=== PATIENT | male | born 1990 ===

== ENCOUNTER 2018-10-16 09:04 | Emergency (ER) | payer OTHER ==
--- OUTSIDE RECORDS SUMMARY | 2018-10-16 10:02 | XMS REPORT | Continuity of Care Document ---
:1990 External Reference #:[id number] Author Name Brayan Bardales PA Address [address] [address] Care Team Providers Name Role Phone Brayan Bardales PA Care Team Information Casserole Preparer Unavailable Payers Date Identification Numbers Payment Provider Subscriber Policy Number: [id number] Lifetime Benefit Vinicio Lowry Group Number: [id number] PayID: EBS MORENITA Macias [id number] Policy Number: [id number] [facility] Gerson Lowry Group Name: No Charge/Courtesy [address] PayID: [id number] [place] [address] Advance Directives Description No Information Available Problems Date Description Provider Status Onset: 04/30/2012 Attention deficit hyperactivity Mary Culver RN MS Active disorder MICROPHONE OPERATOR Onset: 07/11/2017 Mild recurrent major depression Brayan Bardales PA Active Onset: 07/11/2017 Generalized anxiety disorder Brayan Bardales PA Active Onset: 07/11/2017 Gastroesophageal reflux disease Brayan Bardales PA Active Family History Date Family Member(s) Observation Comments Father Depression Father Add Mother Healthy-no Family History Of Illnesses Social History Type Date Description Comments Sex Unknown Tobacco Use Start: Unknown Never Smoked Cigarettes Tobacco Use Start: Unknown Patient has never smoked Smoking Status Reviewed: 10/08/18 Patient has never smoked Allergies, Adverse Reactions, Alerts Description No Known Drug Allergies Medications Medication Date Status Form Strength Qnty SIG Indications Ordering Provider Nystatin/Triamc 08/13/ Active Ointment 423877-4.1 60gm apply to N39.0 ana laura Lam 2018 Unit/GM-% gluteal Jazmine Acetonide area bid MD Jason until rash gone for 3days Vitamin D3 08/06/ Active Tablets 2000Unit 90tabs 1 by mouth E55.9 Genaro, Super Strength 2018 every day Jazmine Gomez MD Levothyroxine 08/06/ Active Tablets 50mcg 90tabs 1 by mouth E03.9 Genaro, Sodium 2018 every day Jazmine Gomez MD Viibryd 11/12/ Active Tablets 40mg 90tabs take one F60.5 Genaro, 2017 tablet by Jazmineher jl Gomez MD every day in the morning Clobetasol 10/31/ Active Shampoo 0.05% 354ml apply thin Macapatrick, Propionate 2017 film to [facility] scalp. MD Jason leave in place for 15 min before lathering and rinsing every day Omeprazole 02/02/ Active Capsules 20mg 30caps Take One K21.[address] Capsule By Jazmineher Jl Gomez MD Every Day K21.9 Doxycycline 08/03 Hx Capsules 100mg 14ca 1 cap by mouth N39. Genaro, Monohydrate 09/22 ps twice a day 0 Jazmine Gomez MD 08/03 04/22 18 Fluconazole 08/03 Hx Tablets 200mg 2tab 1 by mouth x1 N39. Genaro, 09/22 s before and after 0 Jazmine - Doxy course MD Jason 08/03 04/22 18 Adacel 07/05 Hx Suspension 5-2-15.5LF .500 intramuscular x Palomo 05/23 -mcg/0.5 ml one tdap Mary Castellanos 18 - injection. RN MS MICROPHONE OPERATOR 12/21 18 Vitamin D-400 07/05 Hx Tablets 400Unit 4 per day Palomo 04/22 Mary Castellanos 18 - RN MS MICROPHONE OPERATOR 12/21 18 Bupropion HCL ER Hx Tablets ER 150mg 90ta take one tablet F33. Genaro, (XL) 01/20 24HR bs by mouth every 0 Jazmine 18 - fadumo Gomez MD 07/05 04/22 18 Doxycycline Hyclate 11/[address] 100mg 20ta 1 by mouth twice R35Julian Lam, 03/22 bs a day 0 Jazmine Gomez MD 02/20 18 Trintellix 10/05 Hx Tablets 20mg 30ta 1 by mouth every F33. Genaro 04/22 bs day 0 Jazmine Gomez MD 11/01 10/23 18 Venlafaxine HCL ER 11/0 Hx Caps ER 24HR 150mg 60ca take 2 capsules F33. Genaro, 04/22 ps once daily 0 Jazmine 17 - MD Jason 10/05 04/22 18 Venlafaxine HCL 10/0 Hx Tablets 37.5mg 45ta 1 capsule daily F33. Genaro, 11/20 bs for 1week and 0 Jazmine 17 - then increase to MD Jason 10/0 2tabs daily 11/20 17 Venlafaxine HCL ER 10/0 Hx Caps ER 24HR 37.5mg 45ca 1 by mouth every F33. Genaro 11/20 ps day for 1 week 0 Jazmine 17 - and then increase MD Jason 110 to 2 tabs daily 04/22 17 Lexapro 05/04 Hx Tablets 10mg 30ta 1/2 tab for 1week F33. Genaro, 10/23 bs then increase to 0 Jazmine 17 - 1 by mouth every MD Jason 10/0 day 11/20 17 Truvada 04/04 Hx Tablets 200-300mg 30ta 1 po qd for Genaro, 04/22 bs pre-exposure Jazmine 17 - prophylaxis-jacques MD Jason 10/0 check 11/20 17 Sertraline HCL 04/03 Hx Tablets 50mg 45ta /2 tab by mouth F33. Genaro, 01/20 bs every evening for 0 Jazmine 17 - 1week, then MD Jason 05/04 increase to 1 2/20 every evening for 17 2weeks, and then to 2 every evening Doxycycline Hyclate Hx Tablets 100mg 14ta 1 by mouth twice A56. Genaro 02/20 bs a day x 7 d 2 Jazmine Gomez MD 02/02 02/20 17 Monistat 1-Day Hx Ointment 6.5% B37. Genaro, 02/20 49 Jazmine 17 - MD Jason 02/20 Monistat 7 Combo Hx Kit 100&2mg-% B37. Genaro, Pack Dean 02/20 (9GM) 49 Jazmine 17 - MD Jason 04/03 01/20 17 Fluconazole 0 Hx Tablets 150mg 1tab 1 by mouth x1 B37. Genaro, 02/20 s 49 Jazmine Gomez MD 04/03 01/20 17 Azithromycin 2 Hx Tablets 500mg 2tab 2 Tabs X One Palomo, 01/20 s Together. Mary Castellanos, 17 - RN MS MICROPHONE OPERATOR 02/20 17 Nexium OTC 09/[address] 20mg 30ca 1 by mouth every Palomo, 12/21 ps day Mary C, 16 - RN MS MICROPHONE OPERATOR 09/03 12/21 16 Nexium 09/[address] 20mg 90ca one tab daily by K21. Palomo, 12/21 ps mouth, may use 9 Mary Castellanos, 16 - generic RN MS MICROPHONE OPERATOR 09/22 16 Hydroxyzine HCL 05/04 Hx Tablets 10mg 30ta 1-3 tabs every 6 300. Palomo, 04/22 bs hours as needed 00 Mary Castellanos, 14 - anxiety or sleep RN MS MICROPHONE OPERATOR 09/03 12/21 16 Buspirone HCL 05/04 Hx Tablets 15mg 60ta 5 mg twice a day 300. Palomo, 04/22 bs may increase by 5 00 Mary Castellanos, 14 - mg up to A total RN MS MICROPHONE OPERATOR 09/03 of 15 mg bid. 12/21 16 Cyclobenzaprine HCL /0 Hx Tablets 10mg 30ta 1 qhs AT hs prn 307. Palomo, 05/23 bs muscle spasm. 42 Mary Castellanos, 14 - RN MS MICROPHONE OPERATOR 09/22 16 Citalopram /0 Hx Tablets 20mg 90ta Take 1/2 Tablet 300. Palomo, Hydrobromide 05/23 bs By Mouth Once 02 Mary Castellanos, 14 - Daily For 6 To 8 RN MS MICROPHONE OPERATOR 09/03 Days Then 1 Once 12/21 Daily 16 Ambien 11/01 Hx Tablets 5mg 30ta one at bedtime as 307. Palomo, 10/23 bs needed for sleep 42 Mary Castellanos, 13 - RN MS MICROPHONE OPERATOR 0 05/23 14 Hydroxyzine HCL /1 Hx Tablets 25mg 30ta one tab q 6-8 hrs 300. Palomo , 10/23 bs hrs prn, anxiety, 00 Mary Castlelanos, 13 - may take 2 at hs RN MS MICROPHONE OPERATOR 11/01 if needed for 10/23 sleep 13 Omeprazole 10/[address] 20mg 90ca Take One Capsule K21. Palomo, 10/23 ps By Mouth Every 0 Mary Castellanos, 13 - Day RN MS [facility] 09/03 12/21 16 Fexofenadine HCL 07/05 Hx Tablets 60mg 60ta 1 tab bid daily Palomo, 12/21 bs as needed for Mary Castellanos, 10 - allergies RN MS [facility] 04/04 04/22 12 Valium 06/04 Hx Tablets 5mg 2tab 09/04-1 po q 4-6 Palomo, 09/22 s hrs prn flight Mary Castellanos, 10 - anxiety RN MS [facility] 04/04 04/22 12 Concerta 05/05 Hx Tablets ER 18mg 30ta one tab daily in 314. Palomo, 10/23 bs am, 01 Mary Castellanos, 10 - RN [facility] 04/04 04/22 12 Allergy Meds prn 04/03 Hx Palomo, 05/23 Mary Castellanos, 10 - RN [facility] 04/03 05/23 10 Silvadene 04/03 Hx Cream 1% 1uni Apply qd To bid 692. Palomo, 05/23 ts For 5 Days 76 Mary Castellanos, 10 - RN [facility] 05/05 10/23 10 Tylenol/Codeine #3 04/03 Hx Tablets 300-30mg 20ta 1 po tid prn 692. Palomo, 05/23 bs 76 Mary Castellanos, 10 - RN [facility] 04/04 05/23 10 Cetirizine HCL 04/03 Hx Tablets 10mg 30ta daily Palomo, 05/23 bs Mary Castellanos, 10 - RN [facility] 07/05 12/21 10 No Work 04/22/2010 08 Hx D/T Injury may return next 692. Palomo, 05/23 scheduled day 76 Mary Castellanos, 10 - RN MS [facility] 04/04 05/23 10 Strattera 04/03 Hx Capsules 40mg 60ca 1 po qdx 1-2 314. Palomo, 05/23 ps weeks then 01 Mary Castellanos, 10 - increase to bid RN MS [facility] 05/05 10/23 10 Immunizations CPT Code Status Date Vaccine Lot # [id number] Refused 07/31/2018 Influenza Vac, Quadrivalent, Split, 0.5mL Dosage, Im Use Vital Signs Date Vital Result Comment 10/08/2018 9:29am Weight 349.00 lb Heart Rate 82 /min BP Systolic 127 mmHg BP Diastolic 82 mmHg Height 70 inches 5'10" BMI (Body Mass Index) 50.1 kg/m2 08/13/2018 11:34am Weight 341.00 lb Heart Rate 86 /min BP Systolic 135 mmHg BP Diastolic 86 mmHg Height 70 inches 5'10" BMI (Body Mass Index) 48.9 kg/m2 Urine Dipstick - Blood NEGATIVE Urine Dipstick - Protein NEGATIVE Urine Dipstick - Glucose NEGATIVE Urine Dipstick - Leukocytes NEGATIVE 08/05/2018 9:38am Weight 342.00 lb Heart Rate 78 /min BP Systolic 134 mmHg BP Diastolic 84 mmHg Height 70 inches 5'10" BMI (Body Mass Index) 49.1 kg/m2 07/31/2018 10:03am Weight 343.25 lb Heart Rate 82 /min BP Systolic 135 mmHg BP Diastolic 87 mmHg Height 70 inches 5'10" BMI (Body Mass Index) 49.2 kg/m2 05/02/2018 8:04am Weight 328.00 lb Heart Rate 89 /min BP Systolic 137 mmHg BP Diastolic 91 mmHg Height 70 inches 5'10" BMI (Body Mass Index) 47.1 kg/m2 03/07/2018 7:38am Weight 327.00 lb Heart Rate 78 /min BP Systolic 132 mmHg BP Diastolic 83 mmHg Height 70 inches 5'10" BMI (Body Mass Index) 46.9 kg/m2 11/27/2017 9:40am Weight 325.00 lb Heart Rate 82 /min BP Systolic 132 mmHg BP Diastolic 84 mmHg Height 70 inches 5'10" BMI (Body Mass Index) 46.6 kg/m2 Urine Dipstick - Blood NEGATIVE Urine Dipstick - Protein NEGATIVE Urine Dipstick - Glucose NEGATIVE Urine Dipstick - Leukocytes NEGATIVE 10/31/2017 10:34am Weight 320.12 lb Heart Rate 85 /min BP Systolic 131 mmHg BP Diastolic 86 mmHg Height 70 inches 5'10" BMI (Body Mass Index) 45.9 kg/m2 09/11/2017 9:07am Weight 316.00 lb Heart Rate 84 /min BP Systolic 139 mmHg BP Diastolic 85 mmHg Height 70 inches 5'10" BMI (Body Mass Index) 45.3 kg/m2 08/22/2017 10:10am Weight 310.00 lb Heart Rate 84 /min BP Systolic 132 mmHg BP Diastolic 72 mmHg Height 70 inches 5'10" BMI (Body Mass Index) 44.5 kg/m2 07/11/2017 9:44am Weight 309.38 lb Heart Rate 84 /min BP Systolic 139 mmHg BP Diastolic 87 mmHg Height 70 inches 5'10" BMI (Body Mass Index) 44.4 kg/m2 06/05/2017 10:29am Weight 303.38 lb Heart Rate 77 /min BP Systolic 145 mmHg BP Diastolic 87 mmHg Height 70 inches 5'10" BMI (Body Mass Index) 43.5 kg/m2 05/15/2017 8:56am Weight 305.25 lb Heart Rate 70 /min BP Systolic 134 mmHg BP Diastolic 88 mmHg Height 70 inches 5'10" BMI (Body Mass Index) 43.8 kg/m2 04/17/2017 9:35am Weight 299.12 lb Heart Rate 70 /min BP Systolic 129 mmHg BP Diastolic 82 mmHg Height 70 inches 5'10" BMI (Body Mass Index) 42.9 kg/m2 02/26/2017 11:22am Weight 305.00 lb Heart Rate 64 /min BP Systolic 120 mmHg BP Diastolic 80 mmHg Height 70 inches 5'10" BMI (Body Mass Index) 43.8 kg/m2 02/06/2017 11:04am Weight 305.00 lb Heart Rate 64 /min BP Systolic 120 mmHg BP Diastolic 74 mmHg Height 70 inches 5'10" BMI (Body Mass Index) 43.8 kg/m2 12/22/2016 8:10am Weight 306.38 lb Heart Rate 87 /min BP Systolic 131 mmHg BP Diastolic 75 mmHg Height 70 inches 5'10" BMI (Body Mass Index) 44.0 kg/m2 09/28/2016 11:24am Weight 310.25 lb Heart Rate 71 /min BP Systolic 131 mmHg BP Diastolic 84 mmHg Height 70 inches 5'10" BMI (Body Mass Index) 44.5 kg/m2 05/04/2016 2:38pm Weight 312.00 lb Heart Rate 92 /min BP Systolic 121 mmHg BP Diastolic 82 mmHg Height 70 inches 5'10" BMI (Body Mass Index) 44.8 kg/m2 09/16/2015 11:18am Weight 302.25 lb Heart Rate 75 /min BP Systolic 138 mmHg BP Diastolic 89 mmHg Height 70 inches 5'10" BMI (Body Mass Index) 43.4 kg/m2 05/21/2014 11:07am Weight 286.25 lb Heart Rate 73 /min BP Systolic 134 mmHg BP Diastolic 85 mmHg Height 70 inches 5'10" BMI (Body Mass Index) 41.1 kg/m2 12/31/2013 8:51am Weight 279.00 lb Heart Rate 82 /min BP Systolic 130 mmHg BP Diastolic 82 mmHg 12/10/2013 10:58am Weight 282.50 lb Heart Rate 77 /min BP Systolic 130 mmHg BP Diastolic 80 mmHg 11/12/2012 1:55pm Weight 254.00 lb Heart Rate 92 /min BP Systolic 135 mmHg BP Diastolic 82 mmHg 10/15/2012 9:49am Weight 247.38 lb Heart Rate 80 /min BP Systolic 133 mmHg BP Diastolic 84 mmHg 04/30/2012 10:19am Weight 220.00 lb Heart Rate 80 /min BP Systolic 132 mmHg BP Diastolic 85 mmHg Height 70 inches 5'10" BMI (Body Mass Index) 31.6 kg/m2 06/23/2010 2:27pm Weight 197.00 lb Heart Rate 76 /min BP Systolic 131 mmHg BP Diastolic 74 mmHg Height 70 inches 5'10" BMI (Body Mass Index) 28.3 kg/m2 Urine Dipstick - Blood NEGATIVE Urine Dipstick - Protein NEGATIVE Urine Dipstick - Glucose NEGATIVE 05/25/2010 2:25pm Weight 198.00 lb Heart Rate 93 /min BP Systolic 121 mmHg BP Diastolic 74 mmHg 04/21/2010 11:36am Weight 197.00 lb Heart Rate 71 /min BP Systolic 120 mmHg BP Diastolic 75 mmHg Results Test Date Facility Test Result H/L Range Note Laboratory test 08/22/2018 [facility] Growth <0.1 ng/mL 0.0-10.0 finding [address] [facility], [place] [address] Serum [phone] PDF [id number] SEE IMAGE FSH, Serum 08/22/2018 [facility] FSH 5.4 mIU/mL 1.5-12.4 [address] [place] [address] [phone] Laboratory test 08/22/2018 [facility] Luteinizing 9.3 mIU/mL High 1.7-8.6 finding [address] [facility](LH), [place] [address] [phone] TSH 2.390 uIU/mL 0.450-4.500 Acth, Plasma 51.7 pg/mL 7.2-63.3 1 Prolactin 10.9 ng/mL 4.0-15.2 Laboratory test 08/13/2018 [facility] Urine Culture Microbiology res 2 finding <SEE NOTE> GC/Chlamydia By 08/13/2018 [facility] Chlamydia by Dna NEGATIVE Negative Dna Probe Probe GC by Dna Probe NEGATIVE Negative Comprehensive Met Panel-FCMG 08/05/2018 [facility] Sodium 139 mmol/L 135- 146 3 Potassium 4.2 mmol/L 3.5-5.2 Chloride# 102 mmol/L 97-110 4 Carbon Dioxide 25 mmol/L 24-34 Glucose 69 mg/dL Low 70-105 BUN 13 mg/dL 6-26 Creatinine 1.1 mg/dL 0.5-1.4 Calcium 10.0 mg/dL 8.5-10.2 Total Protein 7.5 g/dL 6.0-8.0 Albumin 4.6 g/dL 3.6-4.9 Globulin 2.9 g/dL 2.0-3.5 A/G Ratio 1.6 Ratio 1.0-2.2 Total Bilirubin 0.6 mg/dL 0.1-1.3 Alkaline Phosphatase 62 U/L 24-140 Alt 40 U/L 3-42 Ast 25 U/L 8-42 Priscilla Egfr >60 >60 5 Non Priscilla Egfr >60 >60 6 Anion Gap 12 mmol/L 5-15 7 Laboratory test finding 08/05/2018 [facility] Magnesium 2.0 mg/dL 1.5-2.7 TSH 2.96 uIU/mL 0.35-4.94 Free T4 1.02 ng/dL 0.70-1.48 Lipid 08/05/2018 [facility] Cholesterol 256 mg/dL High 50-199 Triglycerides 337 mg/dL High 30-200 HDL 32 mg/dL 29-71 8 Chol/ HDL Ratio 8.1 ratio High 4.0-6.7 VLDL 67 mg/dL High 2-29 LDL (Calc) 157 mg/dL High 20-99 9 CBC with Auto Diff-fcmg 08/05/2018 [facility] WBC 8.7 K/uL 4.1-11.0 RBC 5.29 M/uL 4.60-6.10 Hemoglobin 15.5 gm/dL 13.5-18.0 Hematocrit 43.4 % 41.0-53.0 MCV 82.1 fL 80.0-97.0 MCH 29.2 pg 27.0-32.0 MCHC 35.6 g/dL 32.0-36.0 RDW 13.9 % 11.5-14.5 PLT Count 248 K/ul 140-400 MPV 8.7 FL 7.1-10.7 Neutrophil 53.6 % 35.0-75.0 Lymphocyte 34.4 % 16.0-52.0 Monocyte 6.7 % 2.0-10.0 Eosinophil 4.5 % 0.0-5.0 Basophil 0.8 % 0.0-4.0 Abs Neutrophils 4.6 K/uL 2.1-8.0 Abs Lymphocytes 3.0 K/uL 0.8-5.5 Abs Monocytes 0.6 K/uL 0.1-1.0 Abs Eosinophils 0.4 K/uL 0.0-0.5 Abs Basophils 0.1 K/uL 0.0-0.3 Laboratory test 08/05/2018 [facility] Vitamin D 25 Hydroxy 20 ng/mL Low 30- 100 10 finding Testosterone,Free & 08/05/2018 [facility] Testosterone Total 235 ng/dL Low 285-950 Total-Male Adult Male Sex Hormone Binding Globulin 16.4 nmol/L 13.3-89.5 Testosterone Free Adult Male 64 pg/mL 50-247 Testosterone Percent Free 2.7 % 1.8-3.2 Laboratory test 11/27/2017 [facility] Urine Culture Microbiology res 11 finding <SEE NOTE> GC/Chlamydia By 11/27/2017 [facility] Chlamydia by Dna NEGATIVE Negative Dna Probe Probe GC by Dna Probe NEGATIVE Negative GC/Chlamydia By Dna 02/06/2017 [facility] Chlamydia by Dna NEGATIVE Negative Probe Probe GC by Dna Probe NEGATIVE Negative GC/Chlamydia By Dna 12/22/2016 [facility] Chlamydia by Dna POSITIVE Abnormal Negative Probe Probe GC by Dna Probe NEGATIVE Negative Laboratory test finding 12/22/2016 [facility] Treponema Igg/Igm NEGATIVE ( Neg) 12 1 ACTH reference interval for samples collected between 7 and 10 AM. 2 Microbiology results SOURCE Clean Catch Midstream FINAL RESULT No growth 3 Updated reference range on new analyzer 4 Updated reference range on new analyzer 5 Concerning GFR Guidelines for Americans: Normal function or mild renal disease, if clinically at risk: >/=60 mL/min Moderately decreased: 30-59 Severely decreased: 15-29 Renal failure: <15 6 Concerning GFR Guidelines: Normal function or mild renal disease, if clinically at risk: >/=60 mL/min Moderately decreased: 30-59 Severely decreased: 15-29 Renal failure: <15 Glomerular Filtration Rate (GFR) is estimated based on the MDRD equation, which assumes a steady state for creatinine as recommended by the National Kidney Disease Education Program in conjunction with the National Institutes of Health and the National Kidney Foundation. Clinical conditions in which it may be necessary to measure GFR by using clearance methods include extremes of age and body size, severe malnutrition or obesity, diseases of skeletal muscle, paraplegia or quadriplegia, vegetarian diet, rapidly changing kidney function, and calculation of the dose of potentially toxic drugs that are excreted by the kidneys. 7 Updated Reference Range -2017 8 Per NCEP ATP III Guidelines: Results lower than 40 mg/dL are suggestive of increased risk for coronary artery disease. Results > or=to 60 mg/dL are considered a negative risk factor. 9 Per NCEP ATP III Guidelines: Normal Population <130 Patients with medical conditions: CHD/DM Optimal: <100 Borderline high: 130-159 High: 160-189 Very high: >189 10 Clinical Guidelines for recommended serum 25(OH)Vitamin D Deficient at less than 20 ng/mL Insufficient at 20 to <30 ng/mL Sufficient at 30-100 ng/mL Toxicity at greater than 100 ng/mL 11 Microbiology results SOURCE Clean Catch Midstream FINAL RESULT No growth 12 Unless otherwise specified, testing performed by [email or web address] [address] [place] [address] Procedures Date Code Description Status 02/26/2017 63821 Destruction Benign Lesions Other Than Skin Tags Up To 14 Completed Lesions Encounters Type Date Location Provider Dx Diagnosis Office Visit 08/13/2018 11:20a Brayan Valdivia PA N39.0 Urinary tract infection, site not specified B37.9 Candidiasis, unspecified Z68.42 Body mass index (BMI) 45.0-49.9, adult Office Visit 08/05/2018 9:40a Brayan Valdivia PA F41.1 Generalized anxiety disorder F33.0 Major depressive disorder, recurrent, 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.9 Gastro-esophageal reflux disease without esophagitis Z23 Encounter for immunization E66.01 Morbid (severe) obesity due to excess calories Z68.42 Body mass index (BMI) 45.0-49.9, adult E55.9 Vitamin D deficiency, unspecified Office Visit 07/31/2018 10:00a Mary Esparza Z02.89 Encounter for other PERLA Castellanos MS MICROPHONE OPERATOR administrative examinations F33.0 Major depressive disorder, recurrent, mild F41.1 Generalized anxiety disorder Z68.42 Body mass index (BMI) 45.0-49.9, adult Office Visit 05/02/2018 8:00a Brayan Valdivia PA F41.1 Generalized anxiety disorder F33.0 Major depressive disorder, recurrent, 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 L21.0 Seborrhea capitis Z68.42 Body mass index (BMI) 45.0-49.9, adult Office Visit 03/07/2018 7:40a Brayan Valdivia F60.5 Obsessive- compulsive PA personality disorder F33.0 Major depressive disorder, recurrent, mild F41.1 Generalized anxiety disorder K21.9 Gastro-esophageal reflux disease without esophagitis E66.01 Morbid (severe) obesity due to excess calories L21.0 Seborrhea capitis Z68.42 Body mass index (BMI) 45.0-49.9, adult Office Visit 11/27/2017 9:40a Brayan Valdivia PA R35.0 Frequency of micturition Z11.3 Encntr screen for infections w sexl mode of transmiss Office Visit 10/31/2017 10:00a Brayan Valdivia F60.5 Obsessive- compulsive PA personality disorder F33.0 Major depressive disorder, recurrent, mild F41.1 Generalized anxiety disorder K21.9 Gastro-esophageal reflux disease without esophagitis E66.01 Morbid (severe) obesity due to excess calories L21.0 Seborrhea capitis Office Visit 09/11/2017 9:40a Brayan Valdivia PA F41.1 Generalized anxiety disorder F33.0 Major depressive disorder, recurrent, 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.9 Gastro-esophageal reflux disease without esophagitis E66.01 Morbid (severe) obesity due to excess calories Office Visit 08/22/2017 10:00a Jazmine Adam Z01.89 Encounter for other MD Jason specified special examinations Office Visit 07/11/2017 9:40a Brayan Valdivia PA F33.0 Major depressive disorder, recurrent, mild F41.1 Generalized anxiety disorder K21.9 Gastro-esophageal reflux disease without esophagitis Office Visit 06/05/2017 10:40a Brayan Valdivia PA F33.0 Major depressive disorder, recurrent, mild F41.1 Generalized anxiety disorder K21.9 Gastro-esophageal reflux disease without esophagitis Office Visit 05/15/2017 9:40a Brayan Valdivia PA F33.0 Major depressive disorder, recurrent, mild F41.1 Generalized anxiety disorder Office Visit 04/17/2017 9:40a Brayan Valdivia PA F33.0 Major depressive disorder, recurrent, mild F41.1 Generalized anxiety disorder Office Visit 02/26/2017 10:45a Ambrocio Adamher B07.0 Plantar wart MD Jason Office Visit 02/06/2017 10:45a Jazmine Adam A56.2 Chlamydial infection of MD Jason genitourinary tract, unspecified Z11.3 Encntr screen for infections w sexl mode of transmiss E66.01 Morbid (severe) obesity due to excess calories K21.0 Gastro-esophageal reflux disease with esophagitis B37.49 Other urogenital candidiasis Office Visit 12/22/2016 8:20a Mary Esparza, K62.5 Hemorrhage of anus and RN MS MICROPHONE OPERATOR rectum L29.0 Pruritus ani B07.0 Plantar wart Z11.3 Encntr screen for infections w sexl mode of transmiss Z12.11 Encounter for screening for malignant neoplasm of colon Office Visit 09/28/2016 11:00a Mary Esparza, Z01.89 Encounter for other RN MS MICROPHONE OPERATOR specified special examinations K21.0 Gastro-esophageal reflux disease with esophagitis Office Visit 05/04/2016 2:20p Mary Esparza, Z11.59 Encounter for RN MS MICROPHONE OPERATOR screening for other viral diseases Office Visit 09/16/2015 11:20a Mary Esparza, K21.9 Gastro- esophageal RN MS MICROPHONE OPERATOR reflux disease without esophagitis R03.0 Elevated blood-pressure reading, w/o diagnosis of htn Office Visit 09/16/2015 10:40a Mary Esparza, Z00.00 Encntr for general RN MS MICROPHONE OPERATOR adult medical exam w/o abnormal findings E66.01 Morbid (severe) obesity due to excess calories K21.0 Gastro-esophageal reflux disease with esophagitis Office Visit 05/21/2014 10:40a Mary Esparza, 300.00 Anxiety State Unspec RN MS [employer]HONE OPERATOR Office Visit 12/31/2013 8:40a Mary Esparza, 300.02 Anxiety Disorder RN MS [employer]OPHONE OPERATOR Generalized 530.11 Esophagitis Reflux Office Visit 12/10/2013 10:40a Mary Esparza, 300.02 Anxiety Disorder RN MS MICROPHONE OPERATOR Generalized 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 530.11 Esophagitis Reflux Office Visit 11/12/2012 1:40p Mary Esparza, RN 530.11 Esophagitis Reflux MS MICROPHONE OPERATOR 300.00 Anxiety State Unspec 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 Office Visit 10/15/2012 9:40a Mary Esparza, RN 530.11 Esophagitis Reflux MS MICROPHONE OPERATOR 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 300.00 Anxiety State Unspec Office Visit 04/30/2012 10:20a Mary Esparza, V70.0 Exam (Adult ) General RN MS [facility] Medical Routine AT Health Care Facility 783.1 Weight Gain Abnormal 314.01 Attention Deficit Disorder W/ Hyperactivity Office Visit 06/23/2010 2:30p Mary Esparza, V70.0 Exam (Adult ) General RN MS [employer]HONE OPERATOR Medical Routine AT Health Care Facility 314.01 Attention Deficit Disorder W/ Hyperactivity 995.3 Allergy Unspec Office Visit 05/25/2010 2:15p Mary Esparza 314.01 Attention Deficit C, RN MS [facility] Disorder W/ Hyperactivity Office Visit 04/21/2010 11:30a Mary Esparza 692.76 Sunburn Of Second C, RN MS [facility] Degree 995.3 Allergy Unspec 314.01 Attention Deficit Disorder W/ Hyperactivity Plan of Treatment Future Appointment(s):12/02/2018 10:00 am - Nurses Schedule Heena at [id number] 10:00 am - Brayan Bardales PA at [id number]/08/2018 - Brayan [place] PAZ00.01 Encounter for general adult medical examination with abnormaComments: EKG -- n/aPSA -- n/aDRE -- n/aColonoscopy -- n/aDEXA -- n/aFlu Vax -- refused 06/2018Tdap -- >10yrs -- refuses today.Ophtho -- neverDentist -- q 1yrHearing -- no issuesMemory/Cognition -- no issuesSexual Fxn -- no issuesSTE -- not checking.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Comments:after thorough discussion; believe this is the root of his dep/ anx. +tough childhood. could have a component of ADHD. many years misdiagnosed with anx/depr. may add Wellbutrin or Provigil. ?borderline vs OCPD. +impulsive w/ spending and eating. feels like Effexor has leveled out behavior and mood. change to Viibryd. ??trintellix with very low sexual side effects. added Wellbutrin but +noted increased sweating and reduced mood. + seeing therapist in [place] due to stressors at work and personal -- stopped in 08/2018 with not working out.A/P: maintain the Viibryd and get counselling.F33.0 Major depressive disorder, recurrent, mildComments:see OCPD.DUGAN is the #1 side effect of Lexapro. Will try to switch to the SNRI's. ?? Viibryd or Trintellix. ??Wellbutrin only as an add on.Believe this is more depression with Anxiety than a Bipolar condition. will send in Rx but pt to check with DOT regs. believe would be better for employment to stabilize mood condition. Rx Zoloft did not go well with major sexual side effects. Lexapro with severe daily DUGAN. Doing okay on the Effexor and improving. sexual side effects at a minimum. had diarrhea for couple days when increased to 75mg. will increase dosing to 150mg q day. good reports fromothers around him. feels like Effexor has leveled out behavior and mood. Will try to change to ? Viibryd. Rx trintellix with very low sexual side effects. Samples and Rx sent w / coupon. A/P SEE OCPDF41.1 Generalized anxiety disorderComments:see OCPDE03.9 Hypothyroidism, unspecifiedNew Labs:TSH, Scheduled: 12/31/18Free T4, Scheduled: 12/31/18Comments:new Rx for levothyroxine. will recheck in 2- 3monthsFollow up:f/u 2months with labs prior.K21.9 Gastro-esophageal reflux disease without esophagitisComments:stable on meds . ?FH with LES disorder. would like to be referred to GI.E55.9 Vitamin D deficiency, unspecifiedComments: will [id number] Body mass index (BMI) 50-59.9, mkonpI42.01 Morbid (severe ) obesity due to excess caloriesComments:Saw Nutrition. no change. ~20min discussion about different diets and reducing calories. good sugar and bad sugar. discussed in depth conversation about calories in vs calories out. admitting to the calories eaten.
--- NOTE | 2018-10-16 10:24 | UC ---
Knee Pain HPI - HPI Summary HPI Summary: SLIPPED ON DRIVEWAY YESTERDAY AND TWISTED LEFT KNEE. PAIN WITH WEIGHT BEARING. - History of Current Complaint Chief Complaint: UCLowerExtremity Stated Complaint: KNEE SWELLING Time Seen by Provider: 10/16/18 10:17 Hx Obtained From: Patient Onset/Duration: Sudden Onset, Lasting Days - 1 DAY, Still Present Severity Initially: Moderate Severity Currently: Moderate Pain Intensity: 4 Pain Scale Used: 0-10 Numeric Character: Sharp Aggravating Factor(s): Movement, Weight Bearing Alleviating Factor(s): Rest Associated Signs And Symptoms: Positive: Swelling. Negative: Redness, Bruising Able to Bear Weight: Yes - WITH PAIN - Allergies/Home Medications Allergies/Adverse Reactions: Allergies Allergy/AdvReac Type Severity Reaction Status Date / Time No Known Allergies Allergy Verified 10/16/18 10:10 Home Medications: Home Medications Levothyroxine Sodium 50 mcg PO DAILY 10/16/18 [History Confirmed 10/16/18] Vilazodone (NF) [Viibryd (NF)] 40 mg PO DAILY 10/16/18 [History Confirmed ] PMH/Surg Hx/FS Hx/Imm Hx Other Psychological History: PERSONALITY DISORDER - Surgical History Surgical History: Yes Surgery Procedure, Year, and Place: cleft lip repair - Family History Known Family History: Positive: Respiratory Disease - Social History Alcohol Use: Occasionally Substance Use Type: None Smoking Status (MU): Never Smoked Tobacco - Immunization History Most Recent Tetanus Shot: 2005 Review of Systems All Other Systems Reviewed And Are Negative: Yes Constitutional: Positive: Negative Skin: Positive: Negative Respiratory: Positive: Negative Cardiovascular: Positive: Negative Gastrointestinal: Positive: Negative Musculoskeletal: Positive: Arthralgia, Decreased ROM, Edema Physical Exam Triage Information Reviewed: Yes Appearance: Well-Appearing, No Pain Distress, Well-Nourished Vital Signs: Initial Vital Signs Temp 100.1 F 10/16/18 10:06 Pulse 81 10/16/18 10:06 Resp 18 10/16/18 10:06 BP 138/85 10/16/18 10:06 Pulse Ox 100 10/16/18 10:06 Vital Signs Reviewed: Yes Eyes: Positive: Conjunctiva Clear ENT: Positive: Hearing grossly normal Neck: Positive: Supple Respiratory: Positive: No respiratory distress, No accessory muscle use Cardiovascular: Positive: Pulses Normal Abdomen Description: Positive: Soft Musculoskeletal: Positive: ROM Limited @ - LEFT KNEE, Edema @ - LFET KNEE, Other : - NO JOINT LINE TENDERNESS OR TENDERNESS OVER ANY BONY PROMINENCES. MCL AND LCL INTACT TO STRESS TESTING. NEG LACHMANS. NEG DRAWERS SIGNS. NEG PATELLAR APPREHENSION TEST. NO TENDERNESS OVER PATELLAR LIGAMENT OR QUADRICEPS TENDON. DECREASED ROM (FLEXION AND EXTENSION). PAIN ANTEROMEDIALLY WITH SWELLING AND SLIGHT WARMTH Neurological: Positive: Alert Psychological: Positive: Age Appropriate Behavior Skin: Negative: Rashes Diagnostics - Radiology LEFT KNEE XRAYS Radiology Interpretation Completed By: Radiologist Summary of Radiographic Findings: Soft tissue swelling without fracture. No joint effusion is noted. Knee Pain Course/Dx - Differential Dx/Diagnosis Provider Diagnosis: Left knee sprain Discharge - Sign-Out/Discharge Documenting (check all that apply): Patient Departure All imaging exams completed and their final reports reviewed: Yes - Discharge Plan Condition: Stable Disposition: HOME Patient Education Materials: Knee Sprain (ED) Referrals: Reginald Sevilla MD [Medical Doctor] - If Needed Jazmine Ro MD [Primary Care Provider] - If Needed Additional Instructions: XRAY TODAY NEGATIVE FOR FRACTURE OR DISLOCATION. YOUR SYMPTOMS SHOULD IMPROVE SIGNIFICANTLY OVER THE NEXT 1-2 WEEKS. IF YOU DO NOT IMPROVE EXPECTED FOLLOW- UP WITH YOUR PCP OR ORTHO. YOU MAY BENEFIT FROM REPEAT IMAGING AT THAT TIME. OTC IBUPROFEN OR ALEVE NEEDED FOR DISCOMFORT. REST, ICE, COMPRESS, ELEVATE. BE SURE TO GO THROUGH SLOW RANGE OF MOTION AND STRETCHING EXERCISES DAILY YOU ARE ABLE TO PREVENT STIFFENING UP AND MAKING THE DISCOMFORT WORSE. - Billing Disposition and Condition Condition: STABLE Disposition: Home
[2018-10-16 10:45] VITALS: BP 138/85
== END 2018-10-16 11:40 | disposition home or self-care (01) ==
LOC: UCEAST 09:04
DX: S83.92XA Sprain of unspecified site of left knee, initial encounter (principal); W18.49XA Other slipping, tripping and stumbling without falling, initial encounter; Y92.9 Unspecified place or not applicable
CPT/HCPCS: 99211; G0463